=== PATIENT | female | born 1985 | race Two or more races ===

== ENCOUNTER 2021-04-22 08:39 | Outpatient (CLI) | payer BC ==
[2021-04-22] VITALS (9 sets, daily range): BP systolic 132–190; BP diastolic 82–122
[~2021-04-22] VITALS: Ht 160 cm; Wt 80.9 kg
[2021-04-22] MEDS ORDERED: MIDAZOLAM HCL/PF 2 MG/2 ML VIAL. ONE (09:23)
[2021-04-22] MEDS ORDERED: fentaNYL PF VIAL 100 MCG/2 ML VIAL ONE (09:23)
[2021-04-22] MEDS ORDERED: CETI10CA PO (09:36)
[2021-04-22] MEDS ORDERED: SERT100T PO (09:37)
[2021-04-22] MEDS ORDERED: LISI20TA18 PO (09:37)
[2021-04-22 09:38] LABS: BASO # 0.1 x10^3/uL (0.0-0.2); BASO % 1 % (0-3); EOS # 0.1 x10^3/uL (0.0-0.7); EOS % 1 % (0-3); HEMATOCRIT 62.2 % (36.0-47.0); HEMOGLOBIN 21.2 g/dL (12.0-15.5); LYMPH # 2.2 x10^3/uL (1.0-4.8); LYMPH % 28 % (24-48); MEAN CORPUSCULAR HEMOGLOBIN 35 pg (25-35); MEAN CORPUSCULAR HGB CONC 34 g/dL (31-37); MEAN CORPUSCULAR VOLUME 103 fL (79-100); MONO # 0.5 x10^3/uL (0.0-1.1); MONO % 6 % (0-9); NEUT # 5.1 x10^3/uL (1.8-7.7); NEUT % 64 % (31-73); PLATELET COUNT 236 x10^3/uL (140-400); RED BLOOD COUNT 6.04 x10^6/uL (3.50-5.40); RED CELL DISTRIBUTION WIDTH 13.8 % (11.5-14.5)
[2021-04-22] MEDS ORDERED: LIDOCAINE WITH 8.4% SOD BICARB 3 ML DISP.SYRIN. ONE (09:59)
[2021-04-22] MEDS ORDERED: fentaNYL PF VIAL 100 MCG/2 ML VIAL IV ONE (10:00)
[2021-04-22] MEDS ORDERED: MIDAZOLAM HCL/PF 2 MG/2 ML VIAL. IV ONE (10:00)
[2021-04-22] MEDS ORDERED: LIDOCAINE WITH 8.4% SOD BICARB 3 ML DISP.SYRIN. IJ ONE (10:00)
--- NOTE | 2021-04-22 11:27 | NUR ---
Discharge Note: CLAUDIA TALBERT Discharge instructions and discharge home medications reviewed with Patient and Father (Ismael) and a copy given. All questions have been answered and understanding verbalized. The following instructions and handouts were given: Moderate sedation and bone marrow biopsy after care Discontinued lines and drains: Rigth wrist IV dc'd, tip intact, and bandage applied. Patient discharged to home with father via personal vehicle.
--- NOTE | 2021-04-22 15:45 | RAD ---
Procedure: CT guided iliac crest bone marrow aspirate and biopsy with conscious sedation . Clinical Indication: Polycythemia vera Discussion: The risks and benefits of the procedure including but not limited to infection, bleeding, and pain, were discussed the patient. Informed consent was obtained. Patient was brought to the CT s canner and placed in the prone position. A time out procedure was performed. The left gluteal region was prepped and draped using maximum sterile barrier technique. CT imaging of the pelvis was perform ed demonstrating a left ilium amenable to bone marrow biopsy. Once an appropriate site for skin entry was selected 1% lidocaine without epinephrine was administered for local anesthesia Following this an [employer] an 11 gauge biopsy needle was set into the superficial cortex of the iliac crest. Aspirates and cores were obtained. Pressure was held to achieve hemostasis. Sterile dressing was applied. The patient tolerated the procedure well without immediate complication. Sedation: Conscious sedation was performed for 20 minutes. Sedation was carried while the patient wa s continually monitored by a member of the Radiology nursing staff. Continual cardiopulmonary monito ring was carried out during the procedure. Conclusion: Successful CT guided bone marrow biopsy and aspirate of left iliac crest CT DOSING PQRS STATEMENT: One or more of the following individualized dose reduction techniques were utilized for this examinat ion: 1. Automated exposure control 2. Adjustment of the mA and/or kV according to patient size 3. Use of iterative reconstruction technique Electronically signed by: Rachid Oneill MD (04/22/2021 3:43 PM) [id number]
--- NOTE | 2021-05-06 09:09 | PATHOLOGY ---
[facility] Accession Number: [id number] . 01 Material submitted: . PART A: bone - BM BIOPSY PART B: bone - BM CLOT PARTICLE PREP PART C: bone - BM ASPIRATE SLIDES PART D: bone - BM PERIPHERAL SMEARS PART E: bone - BM SENDOUT . 01 Clinical history: . POLYCYTHEMIA VERA . 02 Diagnosis: Peripheral smear: - Erythrocytosis (Polycythemia). . Bone marrow, aspirate smears, clot section and core biopsy: - Normocellular to focally mildly hypercellular marrow showing trilineage hematopoiesis, no significant dyspoiesis, focally clustered megakaryocytes, and absent iron stores. See comment. . (JPM:teresa; 05/05/2021) R 05/06/2021 0834 Local . 02 Comment: The peripheral smear shows an erythrocytosis (polycythemia). There is no leukocytosis, leukoerythroblastic reaction, or thrombocytosis. The bone marrow varies from normocellular to mildly hypercellular and shows trilineage hematopoiesis, no significant dyspoiesis, focally clustered megakaryocytes, and essentially absent iron stores. Bone marrow submitted for flow cytometric analysis shows no immunophenotypic evidence of a lymphoproliferative disorder, acute leukemia, increase in blasts, or plasma cell neoplasm. Although the elevated hemoglobin and hematocrit levels certainly fulfill criteria for polycythemia vera, the bone marrow morphologic features are not diagnostic of a myeloproliferative neoplasm and there is no JAK2 V617F mutation present. I cannot exclude the possibility of a myeloproliferative neoplasm associated with functionally similar mutations in exon 12 of JAK2 or other mutations. Please correlate with additional molecular studies. Causes of a secondary erythrocytosis or relative erythrocytosis need to be excluded. The case is also examined by Dr. Guthrie, hematopathologist, who concurs with the diagnosis. (JPM:teresa; 05/05/2021) . . Special stains performed: Retic stain on A1; iron stain on A1 and B1; and aspirate smear . 02 Electronically signed: . Chintan Miller MD, Pathologist NPI- [id number] . 01 Gross description: . A. The specimen is received in formalin, labeled "Valerio, Kellen, BM BX". Received are 3 needle cores of light layne bone ranging in length from 0.5 to 1.0 cm and measuring 0.3 cm in diameter. The specimen is submitted entirely in cassette A1, following light decalcification. . B. The specimen is received in formalin, labeled "Kellen Luo, BM aspirate clot". Received is blood coagulum measuring 2.5 x 1.5 x 0.1 cm in aggregate dimensions. The specimen is filtered and entirely submitted in cassette B1.([facility]; 04/22/2021) [facility] 04/22/2021 1523 Local . 02 Microscopic: . Laboratory Data: The WBC count is 8.0 K/CMM, and the automated WBC differential reveals 64% neutrophils, 28% lymphs, 6% monos, 1% eos, and 1% baso. The RBC count is 6.04 M/CMM, hemoglobin 21.2 G/DL, hematocrit 62.2%, MCV 103 FL, MCH 35 PG, MCHC 34 G/DL, and the RDW is 13.8%. The platelet count is 236 K/CMM. The erythropoietin level is 5.1 mIU/mL. Peripheral blood submitted for CAMILO-2 V617F mutation is negative for the CAMILO-2 V617F mutation. . Peripheral Smear: The peripheral smear is reviewed. The WBC count is normal. There is a predominance of segmented neutrophils, with a smaller population of lymphocytes and several monocytes noted. Neutrophils do not show dysplastic changes. There is no significant neutrophilic left shift. There are no circulating blasts or leukoerythroblastic reaction. There are a few reactive lymphocytes noted. There is no absolute basophilia. The feather edge of the smear is short, consistent with an erythrocytosis (polycythemia). Red blood cells appear normochromic and range from normocytic to mildly macrocytic. Red blood cells show no significant anisopoikilocytosis. Platelets appear normal in number and morphology. . Aspirate Smears: Two Purdy's-stained and one iron-stained aspirate smears are examined. The smears contain multiple marrow particles. The M/E ratio is within normal range. Erythroid maturation predominantly appears normoblastic. Some erythroid precursors show mild nuclear/cytoplasmic maturation dyssynchrony. There are no megaloblastic or overt dysplastic changes. Granulopoiesis qualitatively appears normal. There is no significant left shift or dysplastic changes. There is no increase of blasts. Megakaryocytes appear adequate and are focally loosely clustered. The megakaryocytes are of variable ploidy. Some megakaryocytes are large and have hyperlobulated nuclei. There are scattered admixed plasma cells with no significant increase of plasma cells noted. Lymphocytes are not increased. There are no cells foreign to the marrow. The iron stain shows absent iron stores. No ringed sideroblasts are identified. . Bone Marrow Biopsy and Clot Section: Sections of the bone marrow biopsy reveal segments of bone marrow which range from 40-50% up to 60-70% cellular. The clot section contains multiple marrow particles which range from 30-40% up to 60-70% cellular. There is trilineage hematopoiesis. There is a good admixture of erythroid and granulocytic precursors, which are present in varying stages of maturation. There is no increase of blasts. Megakaryocytes overall appear adequate in number but are focally loosely clustered. The megakaryocytes are of variable ploidy. Some of the megakaryocytes are large and have highly lobulated nuclei. There is no significant megakaryocytic hyperplasia. Plasma cells and lymphocytes are not increased. There are no granulomas. There are no cells foreign to the marrow. A properly controlled reticulin stain shows no significant increase of reticulin fibers. Properly controlled iron stain of the biopsy shows nearly absent stainable iron stores. A properly controlled iron stain of the clot section also shows nearly absent stainable iron stores. There are no ringed sideroblasts. . Special Studies: Bone marrow submitted for flow cytometric analysis has a viability of 95.7%. Granulocytes comprise 73.6% of total cells and show phenotypic evidence of maturation. CD45 dim, CD34 positive cells comprise 1.3% of total cells. Monocytes comprise 2.6% of total cells. Lymphocytes comprise 19.7% of total cells. T-cells comprise 77% of lymphoid cells and show a CD4/CD8 ratio of 1.1. NK-cells comprise 5% of lymphoid cells. Mature B-cells comprise 12% of lymphoid cells and are polyclonal with a kappa:lambda ratio of 1.4. Plasma cells comprise 0.1% of total cells and are not increased. There is no immunophenotypic evidence of a lymphoproliferative disorder, acute leukemia, increase in blasts, or plasma cell neoplasm. . Bone marrow submitted for cytogenetic analysis shows a normal female karyotype in all cells analyzed. FISH analysis is negative for BCR/ABL1 fusion. (JPM:pre coder; 04/30/2021) . 02 Pathologist provided ICD-10: D75.1, D75.89 . 02 CPT . 458421, 782291, 812628, 075473, 304052, 810714, 806177, 890075, 432110 Specimen Comment: A courtesy copy of this report has been sent to [phone], [phone] Specimen Comment: [id number], Specimen Comment: Report sent to , DR DIAZ / DR BRYANT Performed at: 01 [facility] [address], [place] [id number] MD Vishnu Cates MD Phone: [phone] Performed at: 02 [facility] [address] [place], [place] [id number] MD Chintan Miller MD Phone: [phone]
== END 2021-04-22 11:29 | disposition home or self-care (01) ==
LOC: INTRAD 08:39
PROVIDERS: ATTEND Internal Medicine Hematology & Oncology
DX: D45 Polycythemia vera (principal); F32.9 Major depressive disorder, single episode, unspecified; F17.210 Nicotine dependence, cigarettes, uncomplicated; Z79.899 Other long term (current) drug therapy; Z98.890 Other specified postprocedural states; Z20.822 Contact with and (suspected) exposure to COVID-19
CPT/HCPCS: 36415; 38222; 77012; 85025; 87426; 88184; 88185; 88237; 99152; J2250; J3010; J3490; 88305; 88311; 88313

== ENCOUNTER → 2021-05-26 | Outpatient (CLI) | payer BC ==
[2021-04-22 11:15] VITALS: BP 132/92
[~2021-05-26] MED LIST: CETI10CA PO; LISI20TA18 PO; SERT100T PO
[2021-05-26 08:42] LABS: BASO % 1 % (0-3); EOS # 0.1 x10^3/uL (0.0-0.7); EOS % 1 % (0-3); HEMATOCRIT 61.7 % (36.0-47.0); LYMPH # 2.7 x10^3/uL (1.0-4.8); LYMPH % 44 % (24-48); MEAN CORPUSCULAR HEMOGLOBIN 36 pg (25-35); MEAN CORPUSCULAR HGB CONC 34 g/dL (31-37); MEAN CORPUSCULAR VOLUME 106 fL (79-100); MONO # 0.4 x10^3/uL (0.0-1.1); MONO % 7 % (0-9); NEUT # 2.8 x10^3/uL (1.8-7.7); NEUT % 47 % (31-73); PLATELET COUNT 204 x10^3/uL (140-400); RED BLOOD COUNT 5.83 x10^6/uL (3.50-5.40)
[2021-05-26 08:58] LABS: CALCIUM 8.4 mg/dL (8.5-10.1); CREATININE 0.7 mg/dL (0.6-1.0); GFR 94.7; POTASSIUM 3.8 mmol/L (3.5-5.1)
[2021-05-26 09:04] LABS: ALBUMIN 3.3 g/dL (3.4-5.0); ALBUMIN/GLOBULIN RATIO 0.9 (1.0-1.7); TOTAL BILIRUBIN 0.5 mg/dL (0.2-1.0); TOTAL PROTEIN 7.1 g/dL (6.4-8.2)
[2021-05-26 09:46] LABS: HEMOGLOBIN 21.2 g/dL (12.0-15.5)
== END ==
LOC: ONCLAB 08:25
PROVIDERS: ATTEND Internal Medicine Hematology & Oncology
DX: D45 Polycythemia vera (principal)
CPT/HCPCS: 36415; 80053; 85025

== ENCOUNTER → 2021-07-08 | Outpatient (CLI) | payer BC ==
[2021-04-22 11:15] VITALS: BP 132/92
[2021-07-08 14:53] LABS: BASO # 0.1 x10^3/uL (0.0-0.2); BASO % 1 % (0-3); EOS % 1 % (0-3); HEMATOCRIT 58.7 % (36.0-47.0); HEMOGLOBIN 19.7 g/dL (12.0-15.5); LYMPH # 3.3 x10^3/uL (1.0-4.8); LYMPH % 34 % (24-48); MEAN CORPUSCULAR HEMOGLOBIN 37 pg (25-35); MEAN CORPUSCULAR HGB CONC 34 g/dL (31-37); MEAN CORPUSCULAR VOLUME 109 fL (79-100); MONO # 0.5 x10^3/uL (0.0-1.1); MONO % 5 % (0-9); NEUT # 5.7 x10^3/uL (1.8-7.7); NEUT % 59 % (31-73); PLATELET COUNT 246 x10^3/uL (140-400); RED BLOOD COUNT 5.39 x10^6/uL (3.50-5.40); WHITE BLOOD COUNT 9.8 x10^3/uL (4.0-11.0)
[2021-07-08 15:00] LABS: CALCIUM 8.6 mg/dL (8.5-10.1); CREATININE 0.6 mg/dL (0.6-1.0); GFR 112.5; POTASSIUM 3.9 mmol/L (3.5-5.1)
[2021-07-08 15:05] LABS: ALBUMIN 3.6 g/dL (3.4-5.0); TOTAL BILIRUBIN 0.3 mg/dL (0.2-1.0); TOTAL PROTEIN 7.2 g/dL (6.4-8.2)
== END ==
LOC: ONCLAB 14:42
PROVIDERS: ATTEND Internal Medicine Hematology & Oncology
DX: D45 Polycythemia vera (principal)
CPT/HCPCS: 36415; 80053; 82668; 83615; 85025

== ENCOUNTER → 2021-08-31 | Outpatient (CLI) | payer BC ==
[2021-04-22 11:15] VITALS: BP 132/92
[2021-08-31 14:26] LABS: BASO % 0 % (0-3); EOS % 1 % (0-3); HEMATOCRIT 52.5 % (36.0-47.0); HEMOGLOBIN 18.2 g/dL (12.0-15.5); LYMPH # 3.2 x10^3/uL (1.0-4.8); LYMPH % 32 % (24-48); MEAN CORPUSCULAR HEMOGLOBIN 40 pg (25-35); MEAN CORPUSCULAR HGB CONC 35 g/dL (31-37); MEAN CORPUSCULAR VOLUME 114 fL (79-100); MONO # 0.5 x10^3/uL (0.0-1.1); MONO % 5 % (0-9); NEUT # 6.1 x10^3/uL (1.8-7.7); NEUT % 62 % (31-73); PLATELET COUNT 239 x10^3/uL (140-400); RED BLOOD COUNT 4.59 x10^6/uL (3.50-5.40); WHITE BLOOD COUNT 9.9 x10^3/uL (4.0-11.0)
[2021-08-31 14:43] LABS: CALCIUM 8.2 mg/dL (8.5-10.1); CREATININE 0.7 mg/dL (0.6-1.0); GFR 94.2
[2021-08-31 14:48] LABS: ALBUMIN 3.4 g/dL (3.4-5.0); ALBUMIN/GLOBULIN RATIO 0.9 (1.0-1.7); TOTAL BILIRUBIN 0.6 mg/dL (0.2-1.0); TOTAL PROTEIN 7.4 g/dL (6.4-8.2)
[2021-08-31 19:04] LABS: PLT ESTIMATE ADEQUATE (ADEQUATE)
[2021-08-31 19:07] LABS: SPHEROCYTES MOD
[2021-08-31 19:08] LABS: STOMATOCYTES OCC
[2021-08-31 19:09] LABS: POLYCHROMASIA PRESENT
[2021-08-31 19:10] LABS: TEAR DROP CELLS OCC
== END ==
LOC: ONCLAB 13:14
PROVIDERS: ATTEND Internal Medicine Hematology & Oncology
DX: D45 Polycythemia vera (principal)
CPT/HCPCS: 36415; 80053; 83615; 85025

== ENCOUNTER → 2021-10-01 | Outpatient (CLI) | payer BC ==
[2021-04-22 11:15] VITALS: BP 132/92
[2021-10-01 13:28] LABS: BASO # 0.1 x10^3/uL (0.0-0.2); BASO % 1 % (0-3); EOS % 0 % (0-3); HEMATOCRIT 48.3 % (36.0-47.0); HEMOGLOBIN 16.6 g/dL (12.0-15.5); LYMPH % 34 % (24-48); MEAN CORPUSCULAR HEMOGLOBIN 41 pg (25-35); MEAN CORPUSCULAR HGB CONC 34 g/dL (31-37); MEAN CORPUSCULAR VOLUME 118 fL (79-100); MONO # 0.5 x10^3/uL (0.0-1.1); MONO % 5 % (0-9); NEUT # 5.3 x10^3/uL (1.8-7.7); NEUT % 60 % (31-73); PLATELET COUNT 271 x10^3/uL (140-400); RED BLOOD COUNT 4.08 x10^6/uL (3.50-5.40); WHITE BLOOD COUNT 8.9 x10^3/uL (4.0-11.0)
[2021-10-01 13:40] LABS: CREATININE 0.7 mg/dL (0.6-1.0); GFR 94.2
[2021-10-01 13:47] LABS: ALBUMIN 3.4 g/dL (3.4-5.0); ALBUMIN/GLOBULIN RATIO 0.9 (1.0-1.7); TOTAL BILIRUBIN 0.4 mg/dL (0.2-1.0); TOTAL PROTEIN 7.2 g/dL (6.4-8.2)
== END ==
LOC: ONCLAB 13:06
PROVIDERS: ATTEND Internal Medicine Hematology & Oncology
DX: D45 Polycythemia vera (principal)
CPT/HCPCS: 36415; 80053; 83615; 85025

== ENCOUNTER → 2021-11-30 | Outpatient (CLI) | payer BC, OTHER ==
[2021-04-22 11:15] VITALS: BP 132/92
[2021-11-30 14:21] LABS: BASO # 0.1 x10^3/uL (0.0-0.2); BASO % 1 % (0-3); EOS # 0.1 x10^3/uL (0.0-0.7); EOS % 1 % (0-3); HEMATOCRIT 49.4 % (36.0-47.0); HEMOGLOBIN 17.2 g/dL (12.0-15.5); LYMPH # 3.2 x10^3/uL (1.0-4.8); LYMPH % 33 % (24-48); MEAN CORPUSCULAR HEMOGLOBIN 40 pg (25-35); MEAN CORPUSCULAR HGB CONC 35 g/dL (31-37); MEAN CORPUSCULAR VOLUME 116 fL (79-100); MONO # 0.5 x10^3/uL (0.0-1.1); MONO % 5 % (0-9); NEUT # 5.8 x10^3/uL (1.8-7.7); NEUT % 60 % (31-73); PLATELET COUNT 289 x10^3/uL (140-400); RED BLOOD COUNT 4.26 x10^6/uL (3.50-5.40); RED CELL DISTRIBUTION WIDTH 15.2 % (11.5-14.5); WHITE BLOOD COUNT 9.6 x10^3/uL (4.0-11.0)
[2021-11-30 14:35] LABS: CALCIUM 8.8 mg/dL (8.5-10.1); CREATININE 0.7 mg/dL (0.6-1.0); GFR 94.2; POTASSIUM 4.3 mmol/L (3.5-5.1)
[2021-11-30 14:45] LABS: ALBUMIN 3.8 g/dL (3.4-5.0); TOTAL BILIRUBIN 0.4 mg/dL (0.2-1.0); TOTAL PROTEIN 7.5 g/dL (6.4-8.2)
[2021-11-30 15:36] LABS: PLT ESTIMATE ADEQUATE (ADEQUATE)
[2021-11-30 15:37] LABS: BURR CELLS PRESENT
== END ==
LOC: ONCLAB 13:57
PROVIDERS: ATTEND Internal Medicine Hematology & Oncology
DX: D45 Polycythemia vera (principal)
CPT/HCPCS: 36415; 80053; 83615; 85025